=== PATIENT | male | born 1965 | race Caucasian/White ===

== ENCOUNTER 2016-09-16 06:04 | Inpatient (IN) | payer OTHER ==
[~2016-09-16] VITALS: Ht 180.3 cm; Wt 112.6 kg
[~2016-09-16 06:04] MED LIST: HYDR-3240 PO; METO25TA35 PO; OMEP-110 PO; PANT40TA5 PO
[2016-09-16] MEDS ORDERED: BUPIVACAINE/PF-EPI 0.5% 1:200K ONE (06:53)
[2016-09-16] MEDS ORDERED: LACTATED RINGERS 1,000 ML IV SCH (07:05)
[2016-09-16] MEDS ORDERED: FENTANYL PF 250 MCG/5ML ONE (07:11)
[2016-09-16] MEDS ORDERED: MIDAZOLAM 1 MG/ML, 2ML ONE (07:11)
[2016-09-16] MEDS ORDERED: ONDANSETRON 2MG/ML, 2ML ONE (07:27)
[2016-09-16] MEDS ORDERED: NEOSTIGMINE 1 MG/ML, 10ML ONE (07:27)
[2016-09-16] MEDS ORDERED: SUCCINYLCHOLINE 20 MG/ML, 10ML ONE (07:27)
[2016-09-16] MEDS ORDERED: PROPOFOL 10 MG/ML, 20ML ONE (07:27)
[2016-09-16] MEDS ORDERED: DEXAMETHASONE 4 MG/ML, 1ML ONE (07:27)
[2016-09-16] MEDS ORDERED: ROCURONIUM 10 MG/ML ONE (07:27)
[2016-09-16] MEDS ORDERED: KETOROLAC 30 MG/1 ML ONE (07:27)
[2016-09-16] MEDS ORDERED: CEFAZOLIN 1,000 MG ONE (07:27)
[2016-09-16] MEDS ORDERED: GLYCOPYRROLATE 0.2MG/1ML ONE (07:27)
[2016-09-16] MEDS ORDERED: FENTANYL PF 100 MCG/2ML ONE ×3 (07:54→10:06)
[2016-09-16] MEDS ORDERED: ALBUTEROL SULFATE 2.5 MG/3 ML NPPB PRN (08:00)
[2016-09-16] MEDS ORDERED: MEPERIDINE/PF 25MG/0.5ML IVPush PRN (08:00)
[2016-09-16] MEDS ORDERED: hydrALAzine 20 MG/ML, 1ML IV PRN (08:00)
[2016-09-16] MEDS ORDERED: FENTANYL PF 100 MCG/2ML IV PRN (08:00)
[2016-09-16] MEDS ORDERED: LABETALOL 5MG/ML, 20ML IV PRN (08:00)
[2016-09-16] MEDS ORDERED: ONDANSETRON 2MG/ML, 2ML IVPush PRN ×2 (08:00→19:00)
[2016-09-16] MEDS ORDERED: PROMETHAZINE 25 MG/ML, 1ML IV PRN (08:00)
[2016-09-16] MEDS ORDERED: OXYcodone 5 MG/5 ML ORAL.SOL UDC PO PRN (08:00)
[2016-09-16] MEDS ORDERED: MIDAZOLAM 1 MG/ML, 2ML IV PRN (08:00)
[2016-09-16] MEDS ORDERED: ACETAMINOPHEN 325 MG TABLET PO PRN (08:00)
[2016-09-16] MEDS ORDERED: BACITRACIN 50,000 UNIT ONE (09:56)
[2016-09-16] MEDS ORDERED: HYDROmorphone PCA 30 MG/30 ML IV PRN (11:30)
[2016-09-16] MEDS ORDERED: HYDROmorphone PCA 30 MG/30 ML ONE (11:30)
[2016-09-16] MEDS ORDERED: HYDROmorphone 1 MG/ML, 1ML ONE (11:41)
[2016-09-16] MEDS: HYDROmorphone 1 MG/ML, 1ML IV PRN ×2 (11:42→11:59)
[2016-09-16 13:20] VITALS: BP 137/91
[2016-09-16] MEDS ORDERED: LACTATED RINGERS 500 ML IV PRN (13:30)
[2016-09-16] MEDS ORDERED: KETOROLAC 30 MG/1 ML IV PRN (13:45)
[2016-09-16] MEDS: POTASSIUM CHLORIDE 20 MEQ in D5%-0.45% NACL 1,000 ML IV SCH ×2 (14:22→22:55)
[2016-09-16] MEDS: METOPROLOL TARTRATE 25 MG TABLET PO SCH (14:23)
[2016-09-16 19:05] VITALS: BP 117/78
[2016-09-16 20:19] VITALS: BP 117/75
[2016-09-17 00:04] VITALS: BP 127/88
[2016-09-17 03:18] VITALS: BP 119/76
[2016-09-17 06:11] LABS: BLOOD UREA NITROGEN 14 mg/dL (7-18)
[2016-09-17 07:06] VITALS: BP 142/86
[2016-09-17] MEDS: POTASSIUM CHLORIDE 20 MEQ in D5%-0.45% NACL 1,000 ML IV SCH ×3 (08:25→22:10)
[2016-09-17] MEDS: METOPROLOL TARTRATE 25 MG TABLET PO SCH (08:26)
[2016-09-17] MEDS: KETOROLAC 30 MG/1 ML IV SCH ×3 (11:03→22:10)
[2016-09-17] MEDS: HYDROcodone/APAP 7.5-325MG/15ML UDC PO PRN ×4 (11:03→23:46)
[2016-09-17 13:23] VITALS: BP 129/78
[2016-09-17 18:46] VITALS: BP 120/67
[2016-09-18 02:06] VITALS: BP 124/71
[2016-09-18] MEDS: HYDROcodone/APAP 7.5-325MG/15ML UDC PO PRN ×2 (03:54→09:01)
[2016-09-18] MEDS: KETOROLAC 30 MG/1 ML IV SCH (04:40)
[2016-09-18 08:45] VITALS: BP 129/83
[2016-09-18] MEDS: METOPROLOL TARTRATE 25 MG TABLET PO SCH (09:01)
[2016-09-18] MEDS ORDERED: HYDR-882 PO (09:59)
== END 2016-09-18 10:00 | disposition home or self-care (01) | DRG 355 ==
LOC: ORIP 06:04 → INTOOBSV 06:04 → MERGE 07:30 → 4NOR 13:09 → OBSVTOIN 14:43 → DCLOUNGE 09-18 09:50
PROVIDERS: ADMIT Surgery; ATTEND Surgery
PROC: 0WUF0JZ Supplement Abdominal Wall with Synthetic Substitute, Open Approach (ICD-10-PCS; principal; 2016-09-16 07:30)
DX: K43.2 Incisional hernia without obstruction or gangrene (principal); I10 Essential (primary) hypertension; K21.9 Gastro-esophageal reflux disease without esophagitis; Z90.49 Acquired absence of other specified parts of digestive tract; Z79.899 Other long term (current) drug therapy
CPT/HCPCS: 36415; 80048; 82040; 85025; 86850; 86900; C1729; G0378; J0690; J1100; J1170; J1885; J2250; J2405; J2704; J2710; J3010; J3480; J3490; C1781; J0330; J7120

== ENCOUNTER 2016-09-19 16:18 | Inpatient (IN) | payer OTHER ==
[~2016-09-19] VITALS: Ht 180.3 cm; Wt 107.2 kg
[~2016-09-19 16:18] MED LIST changes: +HYDR-882 PO
[2016-09-19] MEDS ORDERED: ONDANSETRON 2MG/ML, 2ML ONE ×2 (16:49→19:00)
[2016-09-19] MEDS ORDERED: HYDROmorphone 1 MG/ML, 1ML ONE ×4 (16:49→19:00)
[2016-09-19] MEDS: HYDROmorphone 1 MG/ML, 1ML IVPush PRN ×2 (16:56→17:35)
[2016-09-19] MEDS ORDERED: SODIUM CHLORIDE 0.9% 1,000ML IVBOLUS ONE (17:00)
[2016-09-19] MEDS ORDERED: ONDANSETRON 2MG/ML, 2ML IVPush ONE ×2 (17:00→19:00)
[2016-09-19] MEDS ORDERED: SODIUM CHLORIDE FLUSH 10ML SYR IVF ONE (17:00)
[2016-09-19 17:33] LABS: ASPARTATE AMINO TRANSFERASE 23 U/L (15-37); BLOOD UREA NITROGEN 8 mg/dL (7-18)
[2016-09-19 18:07] LABS: DIFF TOTAL CELLS COUNTED 100 CELL DIFF
[2016-09-19 18:08] LABS: VERIFY COUNTS? YES
[2016-09-19] MEDS ORDERED: SODIUM CHLORIDE 0.9% 1,000 ML IV ONE (18:32)
[2016-09-19] MEDS ORDERED: OMNIPAQUE 350 MG/ML, 100ML BOTTLE ONE (18:34)
[2016-09-19] MEDS ORDERED: HYDROmorphone 1 MG/ML, 1ML IVPush PRN (19:00)
[2016-09-19] MEDS ORDERED: ONDANSETRON 2MG/ML, 2ML IVPush PRN ×2 (19:00→20:00)
[2016-09-19] MEDS ORDERED: SODIUM CHLORIDE FLUSH 10ML SYR IVF PRN (19:00)
[2016-09-19] MEDS ORDERED: MORPHINE SULFATE 4 MG/ML, 1ML IVPush PRN (19:00)
[2016-09-19] MEDS ORDERED: HALOPERIDOL 5 MG/ML IM PRN (20:00)
[2016-09-19 20:24] VITALS: BP 160/123
[2016-09-19] MEDS: INSULIN REGULAR 100 UNITS/ML, 3ML VIAL SQ-INSULIN SCH (21:00)
[2016-09-19] MEDS: HYDROmorphone 2 MG/ML, 1ML IVPush PRN (23:56)
[2016-09-20 02:07] VITALS: BP 149/95
[2016-09-20] MEDS: HYDROmorphone 2 MG/ML, 1ML IVPush PRN ×6 (03:15→20:58)
[2016-09-20 06:00] LABS: BLOOD UREA NITROGEN 13 mg/dL (7-18)
[2016-09-20] MEDS: INSULIN REGULAR 100 UNITS/ML, 3ML VIAL SQ-INSULIN SCH ×4 (07:00→21:46)
[2016-09-20 08:03] VITALS: BP 156/93
[2016-09-20] MEDS ORDERED: PANTOPROZOLE 40MG TABLET PO SCH (09:00)
[2016-09-20] MEDS: SODIUM CHLORIDE 0.9% 1,000 ML IV SCH ×3 (09:56→21:58)
[2016-09-20 14:20] VITALS: BP 152/93
[2016-09-20] MEDS: METOPROLOL TARTRATE 50 MG TABLET PO SCH ×2 (16:06→18:10)
[2016-09-20 18:08] VITALS: BP 151/103
[2016-09-20 20:00] VITALS: BP 152/106
[2016-09-20 21:42] VITALS: BP 167/98
[2016-09-21] MEDS: HYDROmorphone 2 MG/ML, 1ML IVPush PRN ×7 (00:03→20:39)
[2016-09-21 04:05] VITALS: BP 131/81
[2016-09-21] MEDS: SODIUM CHLORIDE 0.9% 1,000 ML IV SCH ×2 (05:26→23:10)
[2016-09-21 05:56] LABS: BLOOD UREA NITROGEN 18 mg/dL (7-18)
[2016-09-21 05:59] LABS: ASPARTATE AMINO TRANSFERASE 15 U/L (15-37)
[2016-09-21] MEDS: INSULIN REGULAR 100 UNITS/ML, 3ML VIAL SQ-INSULIN SCH (06:27)
[2016-09-21] MEDS: METOPROLOL TARTRATE 50 MG TABLET PO SCH ×2 (06:28→18:47)
[2016-09-21 06:30] VITALS: BP 135/82
[2016-09-21 07:09] VITALS: BP 145/81
[2016-09-21] MEDS: PANTOPRAZOLE 40 MG IV IVPush SCH ×2 (08:28→20:39)
[2016-09-21 09:16] LABS: BLOOD UREA NITROGEN 18 mg/dL (7-18)
[2016-09-21 09:19] LABS: ASPARTATE AMINO TRANSFERASE 20 U/L (15-37)
[2016-09-21 12:48] VITALS: BP 134/80
[2016-09-21] MEDS ORDERED: OMNIPAQUE 350 MG/ML, 150 ML BOTTLE ONE (17:20)
[2016-09-21 20:00] VITALS: BP 127/86
[2016-09-22 02:24] VITALS: BP 152/83
[2016-09-22] MEDS: SODIUM CHLORIDE 0.9% 1,000 ML IV SCH ×3 (05:39→19:00)
[2016-09-22] MEDS: METOPROLOL TARTRATE 50 MG TABLET PO SCH ×2 (05:53→18:46)
[2016-09-22] MEDS: HYDROmorphone 2 MG/ML, 1ML IVPush PRN ×2 (05:57→14:01)
[2016-09-22 05:58] LABS: BLOOD UREA NITROGEN 19 mg/dL (7-18)
[2016-09-22 08:00] VITALS: BP 142/91
[2016-09-22] MEDS: PANTOPRAZOLE 40 MG IV IVPush SCH (08:32)
[2016-09-22 14:00] VITALS: BP 147/93
[2016-09-22] MEDS ORDERED: METO50TA82 PO (17:47)
[2016-09-22] MEDS ORDERED: PANT40TA5 PO (17:47)
== END 2016-09-22 20:44 | disposition home or self-care (01) | DRG 390 ==
LOC: ED 18:48 → EDIP 19:00 → 4NOR 20:10
PROVIDERS: ADMIT Family Medicine; ATTEND Internal Medicine
PROC: 0D9670Z Drainage of Stomach with Drainage Device, Via Natural or Artificial Opening (ICD-10-PCS; principal; 2016-09-19)
DX: K56.60 Unspecified intestinal obstruction (principal); I16.0 Hypertensive urgency; D72.829 Elevated white blood cell count, unspecified; E66.9 Obesity, unspecified; I10 Essential (primary) hypertension; K21.0 Gastro-esophageal reflux disease with esophagitis; R73.9 Hyperglycemia, unspecified; Z79.899 Other long term (current) drug therapy; Z68.31 Body mass index [BMI] 31.0-31.9, adult; Z90.49 Acquired absence of other specified parts of digestive tract; Z80.9 Family history of malignant neoplasm, unspecified
CPT/HCPCS: 36415; 74000; 74177; 74250; 80048; 80053; 81003; 82962; 83036; 83690; 83735; 84100; 85025; 93005; 96374; 96375; 96376; J1170; J2405; Q9967; C9113; J7030

== ENCOUNTER 2017-12-03 13:18 | Emergency (ER) | payer OTHER ==
[~2017-12-03] VITALS: Ht 180.3 cm; Wt 104.1 kg
[~2017-12-03 13:18] MED LIST changes: +METO50TA82 PO
[2017-12-03] MEDS ORDERED: FAMOTIDINE 20 MG/2 ML IVP ONE (14:00)
[2017-12-03] MEDS ORDERED: SODIUM CHLORIDE 0.9% 1,000ML IVBOLUS ONE (14:00)
[2017-12-03] MEDS ORDERED: SODIUM CHLORIDE FLUSH 10ML SYR IVF ONE (14:00)
[2017-12-03] MEDS ORDERED: METOCLOPRAMIDE 5 MG/ML, 2ML IVPush ONE (14:00)
[2017-12-03] MEDS ORDERED: MORPHINE SULFATE 4 MG/ML, 1ML IVPush PRN (14:00)
[2017-12-03] MEDS ORDERED: MORPHINE SULFATE 4 MG/ML, 1ML ONE (14:02)
[2017-12-03] MEDS ORDERED: METOCLOPRAMIDE 5 MG/ML, 2ML ONE (14:02)
[2017-12-03] MEDS ORDERED: FAMOTIDINE 20 MG/2 ML ONE (14:03)
[2017-12-03 14:29] LABS: BASOPHILS # (AUTO) 0.07 x10^3/uL (0-0.1); BASOPHILS % (AUTO) 1 % (0-1); EOSINOPHILS # (AUTO) 0.15 x10^3/uL (0-0.4); EOSINOPHILS % (AUTO) 3 % (1-7); LYMPHOCYTES # (AUTO) 1.58 x10^3/uL (1-3.4); LYMPHOCYTES % (AUTO) 28 % (22-44); MD NO; MEAN CORPUSCULAR HEMOGLOBIN 31.7 pg (27.5-34.5); MEAN CORPUSCULAR HGB CONC 34.8 g/dL (33.2-36.2); MEAN PLATELET VOLUME 8.7 fL (7.4-10.4); MONOCYTES % (AUTO) 11 % (2-9); NEUTROPHILS # (AUTO) 3.27 x10^3/uL (1.8-6.8); NEUTROPHILS % (AUTO) 58 % (42-75); PLATELET COUNT 230 x10^3/uL (130-400); RED BLOOD COUNT 5.11 x10^6/uL (4.38-5.82); RED CELL DISTRIBUTION WIDTH 12.6 % (9.4-14.8)
[2017-12-03 14:35] LABS: ALANINE AMINOTRANSFERASE 41 U/L (12-78); ALBUMIN 4.1 g/dL (3.4-5.0); ANION GAP 10 mmol/L (5-15); CALCIUM 8.6 mg/dL (8.5-10.1); CHLORIDE 111 mmol/L (98-107); CREATININE 1.19 mg/dL (0.7-1.3)
[2017-12-03 14:37] LABS: ALKALINE PHOSPHATASE 73 U/L (45-117); BILIRUBIN,TOTAL 0.5 mg/dL (0.2-1.0); TOTAL PROTEIN 7.7 g/dL (6.4-8.2)
[2017-12-03] MEDS ORDERED: OMNIPAQUE 350 MG/ML, 100ML BOTTLE ONE (15:41)
[2017-12-03 16:32] VITALS: BP 120/74
== END 2017-12-03 16:34 | disposition home or self-care (01) ==
LOC: ED 16:28
DX: R10.84 Generalized abdominal pain (principal); I10 Essential (primary) hypertension
CPT/HCPCS: 36415; 74021; 74177; 80053; 83690; 85025; 96374; 96375; 99285; J2765; J7030; Q9967; S0028